=== PATIENT | female | born 1950 | race Caucasian/White ===

== ENCOUNTER 2016-11-03 06:10 | Day surgery (SDC) | payer MEDICARE, OTHER ==
[~2016-11-03] VITALS: Ht 166.4 cm; Wt 74.5 kg
[2016-11-03] MEDS ORDERED: SODIUM CHLORIDE 0.9% 1,000 ML IV ONE ×2 (06:30)
[2016-11-03] MEDS ORDERED: BUDE10.2 IH (06:53)
[2016-11-03] MEDS ORDERED: ALBU8.5H IH (06:53)
[2016-11-03] MEDS ORDERED: MIDAZOLAM HCL 2 MG/2 ML VIAL ONE (07:50)
[2016-11-03] MEDS ORDERED: FentaNYL CITRATE-PF 100 MCG/2 ML VIAL ONE (07:51)
[2016-11-03] MEDS ORDERED: MethylPREDNISolone SOD SUCC 125 MG/2 ML VIAL IVP ONE (09:00)
[2016-11-03] MEDS ORDERED: MethylPREDNISolone SOD SUCC 125 MG/2 ML VIAL ONE (09:21)
[2016-11-03] MEDS ORDERED: PROMETHAZINE HCL/CODEINE 6.25-10MG/5ML SYRUP UDCUP PO ONE (09:30)
[2016-11-03] MEDS ORDERED: ACETAMINOPHEN 500 MG TABLET PO ONE (10:00)
[2016-11-03] MEDS ORDERED: ACETAMINOPHEN 500 MG TABLET ONE (10:05)
[2016-11-03] MEDS ORDERED: BENZOCAINE 20% 50 MCG/SPRAY 57 GM TP ONE (12:34)
[2016-11-03] MEDS ORDERED: LIDOCAINE HCL 2% 30 ML JELLY TP ONE (12:34)
[2016-11-03] MEDS ORDERED: LIDOCAINE HCL 4% 50 ML SOLUTION TP ONE (12:34)
[2016-11-03] MEDS ORDERED: ALBUTEROL SULFATE 2.5 MG/0.5 ML NEB SOLUTION NEB ONE (12:34)
[2016-11-03] MEDS ORDERED: OXYGEN THERAPY IH SCH (20:00)
== END 2016-11-03 10:40 | disposition home or self-care (01) ==
LOC: SURGERY 06:10
PROVIDERS: ATTEND Internal Medicine Critical Care Medicine
DX: J38.4 Edema of larynx (principal); B37.0 Candidal stomatitis; J44.9 Chronic obstructive pulmonary disease, unspecified; M54.9 Dorsalgia, unspecified; Z88.3 Allergy status to other anti-infective agents; Z87.891 Personal history of nicotine dependence; Z98.890 Other specified postprocedural states; Z85.118 Personal history of other malignant neoplasm of bronchus and lung
CPT/HCPCS: 31623; 31624; 71010; 87015 ×2; 87070; 87077; 87101; 87186; 87205; 87220; 88108; 88312; J2250; J2930; J3010; J7030